=== PATIENT | female | born 1975 | race Two or more races ===

== ENCOUNTER 2024-12-18 20:46 | Emergency (ER) | payer SELFPAY ==
[~2024-12-18] VITALS: Ht 165.1 cm; Wt 70.5 kg
--- NOTE | 2024-12-18 21:33 | ED.PDOC ---
Corneliat. trauma (HPI) HPI Comments 49-year-old female who came to ER for fall injury. Patient fell off a diesel truck this morning. Fell badly on her right side, complaining of right forearm the still therm/ wrist pain, right chest wall pain and right head pain. Denies any loss of consciousness. Chief Complaint: Fall Injury Time Seen by MD: 21:32 Reviewed notes: Nurses Notes Information Source: Patient Mode of Arrival: Ambulatory Severity: Moderate Timing: Hours Duration: Since onset Location: Chest, (R) Forearm, Head, (R) Wrist Mechanism: Fall Past Medical History PAST MEDICAL HISTORY: Denies Surgical History: Denies all surgeries [employer] History: Denies all [employer] Hx Family History Family History: Reviewed,noncontributory to illness Social History Smoker: Non-Smoker Alcohol: Denies ETOH Use Drugs: Denies Drug Use Lives In: Home Constitutional: denies: chills, diaphoresis, fatigue, fever, malaise, sweats, weakness, others EENTM: denies: blurred vision, double vision, ear bleeding, ear discharge, ear drainage, ear pain, ear ringing, eye pain, eye redness, hearing loss, mouth pain, mouth swelling, nasal discharge, nose bleeding, nose congestion, nose pain, photophobia, tearing, throat pain, throat swelling, voice changes, others Respiratory: denies: cough, hemoptysis, orthopnea, SOB at rest, shortness of breath, SOB with excertion, stridor, wheezing, others Cardiovascular: reports: chest pain; denies: dizzy spells, diaphoresis, Dyspnea on exertion, edema, irregular heart beat, left arm pain, lightheadedness, palpitations, PND, syncope, others Gastrointestinal: denies: abdomen distended, abdominal pain, blood streaked bowels, constipated, diarrhea, dysphagia, difficulty swallowing, hematemesis, melena, nausea, poor appetite, poor fluid intake, rectal bleeding, rectal pain, vomiting, others Genitourinary: denies: abnormal vagina bleeding, burning, dyspareunia, dysuria, flank pain, frequency, hematuria, incontinence, pain, , vagina discharge, urgency, others Neurological: denies: dizziness, fainting, headache, left sided numbness, left sided weakness, numbness, paresthesia, pre-existing deficit, right sided numbness, right sided weakness, seizure, speech problems, tingling, tremors, weakness, others Musculoskeletal: reports: muscle pain (Right forearm); denies: back pain, gout, joint pain, joint swelling, muscle stiffness, neck pain, others Integumetry: denies: bruises, change in color, change in hair/nails, dryness, laceration, lesions, lumps, rash, wounds, others Allergic/Immunocompromised: denies: Difficulty Healing, Frequent Infections, Hives, Itching, others Hematologic/Lymphatic: denies: anemia, blood clots, easy bleeding, easy bruising, swollen glands, others Endocrine: denies: excessive hunger, excessive sweating, excessive thirst, excessive urination, flushing, intolerance to cold, intolerance to heat, unexplained weight gain, unexplained weight loss, others Psychiatric: denies: anxiety, bipolar disorder, depression, hopeless, panic disorder, schizophrenia, sleepless, suicidal, others Physical Exam General Appearance: No Apparent Distress, Normal HEENT: Normal ENT Inspection, Pharynx Normal, TMs Normal Neck: Full Range of Motion, Non-Tender, Normal, Normal Inspection Respiratory: Chest Non-Tender, Lungs Clear, No Accessory Muscle Use, No Respiratory Distress, Normal Breath Sounds Cardiovascular: No Edema, No JVD, No Murmur, No Gallop, Normal Peripheral Pul ses, Regular Rate/Rhythm Breast Exam: Deferred Gastrointestinal: No Organomegaly, Non Tender, No Pulsatile Mass, Normal Bowel Sounds, Soft Genitalia: Deferred Pelvic: Deferred Rectal: Deferred Extremities: No calf tenderness, Normal capillary refill, Normal inspection, Normal range of motion, No pedal edema, Swelling (Right forearm swelling), Other (+2 right radial pulses) Musculoskeletal : Apperance: Normal Neurologic: Alert, tariff supervisor II-XII nml as Tested, No Motor Deficits, Normal Affect, Normal Mood, No Sensory Deficits Cerebellar Function: Normal Reflexes: Normal Skin: Dry, Normal Color, Warm Peripheral Pulses: 2+ Radial (R) Lymphatic: No Adenopathy Was a procedure done? Was a procedure done?: No Differential Diagnosis Multiple Trauma: Closed Head Injury, Cardiac Injury, Fractures, Intraabdominal Injury, Pneumothorax, Cerebral Contusion, Pulmonary Contusion, Spine Injury, Vascular Injury, Abrasions, Contusion, Hematoma X-Ray, Labs, Meds, VS Vital Signs Date Time Temp Pulse Resp B/P (MAP) Pulse Ox O2 Delivery O2 Flow Rate FiO2 12/18/24 21:53 96 Room Air* 0 21 12/18/24 21:50 98.0 63 16 103/77 (86) 95 98.0 12/18/24 20:50 97.2 64 20 102/84 100 97.2 Current Medications Medications (Trade) Dose Ordered Sig/Citlaly Route Start Time Stop Time Status Last Admin Acetaminophen/ Hydrocodone Bitart ([place] 5/325MG Tab) 1 tab ONCE ONCE PO 12/18/24 21:30 12/18/24 21:31 DC 12/18/24 22:00 EXAMINATION: XY R RIB XRAY INDICATION: INJURY COMPARISON: None TECHNIQUE: 3 views FINDINGS: No evidence of a displaced rib or other fracture. Lungs are clear. No evident pleural effusion or pneumothorax. Normal heart size. Unremarkable soft tissues. IMPRESSION: 1. No acute cardiopulmonary disease. 2. No displaced rib fracture. ICAL INDICATION: INJURY TECHNIQUE: 2 radiographic views of the forearm were obtained. Comparison: None FINDINGS/IMPRESSION: Oblique fracture distal radius is noted with minimal displacement. Ulna appears intact. Proximal radius and ulna are in normal alignment and intact Time of 1ST Reevaluation: 21:29 Reevaluation 1ST: Unchanged Patient Education/Counseling: Diagnosis, Treatment, Prognosis, Need For Follow Up Family Education/Counseling: No Family Present Comments Patient has a right forearm distal radial fracture. With intact neurovascular functions. Otherwise she sustained no other injuries no, rib fractures, no pneumothorax. No pleural effusion, no pulmonary contusion. No laceration. No head injuries no neck injuries. Patient is splinted with intact neurovascular functions and she is stable to be follow up with her primary doctor. I will prescribe her pain control Departure 1 Departure Time of Disposition: 22:51 Impression: Primary Impression: Right forearm fracture Qualified Codes: S52.91XA - Unspecified fracture of right forearm, initial encounter for closed fracture Disposition: 01 HOME / SELF CARE / HOMELESS Condition: Good e-Prescriptions Ibuprofen Micronized (MOTRIN TABLET) 600 Mg Tb 600 MG PO TID PRN, #40 TAB *Black box warning-NSAIDS can increase risk of DE & hypertension, GI irritation, ulceration, bleed, perferation. Do not use post cardiac surgery. Use short duration/lowest effective dose. Prov: MARY DOTY MD 12/18/24 Discharged With: Self Critical Care Note Critical Care Time?: No Stability Stability form required: No Heart Score Heart Score: Heart Score Response (Comments) Value History N/A 0 EKG N/A 0 Age N/A 0 Risk Factors N/A 0 Troponin N/A 0 Total 0 I personally scribed [facility] on 12/18/24 at 21:33. Elect ronically submitted by Todd Goodwin ([facility] I personally scribed for MARY DOTY MD ([email or web address]) on 12/18/24 at 22:42. El ectronically submitted by Todd Goodwin ([facility]). MARY DOTY MD Dec 18, 2024 21:33
[2024-12-18 21:50] VITALS: TEMP 98
[2024-12-18 21:53] VITALS: O2SAT 96
[2024-12-18] MEDS: HYDROcodone-ACET 5/325MG TAB PO ONE (22:00)
--- NOTE | 2024-12-18 22:22 | DVH ---
EXAMINATION: XY R RIB XRAY INDICATION: INJURY COMPARISON: None TECHNIQUE: 3 views FINDINGS: No evidence of a displaced rib or other fracture. Lungs are clear. No evident pleural effusion or pn eumothorax. Normal heart size. Unremarkable soft tissues. IMPRESSION: 1. No acute cardiopulmonary disease. 2. No displaced rib fracture.
--- NOTE | 2024-12-18 22:23 | DVH ---
CLINICAL INDICATION: INJURY TECHNIQUE: 2 radiographic views of the forearm were obtained. Comparison: None FINDINGS/IMPRESSION: Oblique fracture distal radius is noted with minimal displacement. Ulna appears intact. Proximal radius and ulna are in normal alignment and intact
[2024-12-18] MEDS ORDERED: IBU600T PO (23:00)
[2024-12-19] MEDS: HYDROcodone-ACET 5/325MG TAB PO ONE (00:07)
[2024-12-19 00:10] VITALS: BP 110/68; PULSE 76; RESP 18; O2SAT 96
== END 2024-12-19 00:45 | disposition home or self-care (01) ==
LOC: ER 20:46
DX: S52.591A Other fractures of lower end of right radius, initial encounter for closed fracture (principal); W18.39XA Other fall on same level, initial encounter; Y93.89 Activity, other specified; Y92.89 Other specified places as the place of occurrence of the external cause; Y99.8 Other external cause status
CPT/HCPCS: 29125; 71101; 73090